=== PATIENT | male | born 1960 | race African-American/Black ===

== ENCOUNTER 2017-11-26 17:08 | Emergency (ER) | payer OTHER ==
[2017-11-26 18:22] LABS: BILIRUBIN,URINE NEGATIVE (NEG); CLARITY,URINE CLEAR; COLOR,URINE YELLOW; GLUCOSE,URINE NEGATIVE (NEG); NITRITE,URINE NEGATIVE (NEG); PH,URINE 5.5; PROTEIN,URINE NEGATIVE (NEG-TRACE); UROBILINOGEN,URINE 0.2 mg/dL (0.2 mg/dL)
[2017-11-26 18:32] LABS: BACTERIA,URINE 0 /HPF (0-FEW); HYALINE CASTS, URINE OCCASIONAL /HPF; RBC,URINE 0 /HPF (0-2); WBC,URINE 0 /HPF (0-4)
== END 2017-11-26 18:30 | disposition home or self-care (01) ==
LOC: ER 17:08
DX: N52.9 Male erectile dysfunction, unspecified (principal)
CPT/HCPCS: 81001; 87086; 87491; 87591; 99284